=== PATIENT | female | born 1955 | race Caucasian/White ===

== ENCOUNTER 2016-09-29 14:31 | Emergency (ER) | payer OTHER ==
[~2016-09-29] VITALS: Ht 162.6 cm; Wt 117.5 kg
[2016-09-29 15:45] LABS: MCHC 32.4 G/DL (30.0-36.0); MCV 86.3 FL (83-99); MEAN PLAT.VOLUME 11.3 uM^3 (9.5-12.4); PLATELET COUNT 231 K/uL (156-360); RBC DIS.WIDTH-CV 14.2 % (11.8-14.6); RBC DIS.WIDTH-SD 45.5 % (39-53); RED BLOOD COUNT 5.68 M/uL (3.80-5.20); WHITE BLOOD COUNT 5.8 K/uL (4.1-10.2)
[2016-09-29 15:57] LABS: ADD MIUA? YES; BILIRUBIN NEGATIVE; BLOOD NEGATIVE; COLOR YELLOW ((YELLOW)); GLUCOSE (STRIP) NEGATIVE; KETONES NEGATIVE; LEUKOCYTES NEGATIVE; NITRITE NEGATIVE; PROTEIN (STRIP) NEGATIVE; UROBILINOGEN 0.2 MG/DL (0.2-1.0)
[2016-09-29 16:03] LABS: BACTERIA RARE /HPF; CALCIUM OXALATE CRYSTALS 2+ /HPF; EPITHELIAL CELLS 1+ /HPF; MUCUS TRACE /LPF; RED BLOOD CELLS 0-5 /HPF (0-5); WHITE BLOOD CELLS 0-5 /HPF (0-5)
[2016-09-29 16:04] LABS: CHLORIDE 102 mEq/L (99-109); SODIUM 136 mEq/L (136-147)
[2016-09-29 16:06] LABS: GLUCOSE 93 mg/dL (70-99)
[2016-09-29 16:07] LABS: ANION GAP 14 MEQ/L (2-14)
[2016-09-29 16:08] LABS: TOTAL BILIRUBIN 0.5 mg/dL (0.0-1.0)
[2016-09-29 16:09] LABS: ALKALINE PHOSPHATASE 84 IU/L (3-129)
[2016-09-29 16:10] LABS: GFR ESTIMATE (CALCULATED) > 59 mL/min/
[2016-09-29 16:11] LABS: UREA NITROGEN (BUN) 12 mg/dL (9-23)
[2016-09-29 16:13] LABS: LIPASE 23 U/L (1.0-51.0)
[2016-09-29 20:30] LABS: TROP-I INTERPRETATION NEGATIVE; TROPONIN-I < 0.01 ng/mL (0.0-0.30)
[2016-09-29] MEDS ORDERED: ZOFRAN ODT4 MG PO (21:49)
[2016-09-29 22:24] VITALS: BP 127/72
== END 2016-09-29 22:27 | disposition home or self-care (01) ==
LOC: EME 14:31
PROVIDERS: Emergency Medicine; Nurse Practitioner Family
DX: R11.0 Nausea (principal); R42 Dizziness and giddiness
CPT/HCPCS: 71020; 80053; 81003; 83690; 84484; 85027; 93005; 99281; 99285; J1885; J7030